=== PATIENT | male | born 1995 | race Caucasian/White ===

== ENCOUNTER 2020-02-28 03:01 | Emergency (ER) | payer OTHER ==
[~2020-02-28] VITALS: Ht 170.2 cm; Wt 83.9 kg
[2020-02-28 03:01] VITALS: BP_SYST 126
[2020-02-28 03:36] VITALS: BP_SYST 126
== END 2020-02-28 03:36 ==
LOC: SED 03:01
DX: Z02.89 Encounter for other administrative examinations (principal)
CPT/HCPCS: 99283